=== PATIENT | female | born 1930 | race Caucasian/White ===

== ENCOUNTER 2018-12-18 10:35 | Inpatient (IN) ==
[2018-12-18 11:34] LABS: Basophils # 0.1 10*3/uL (0.0-0.2); Basophils % 0.4 % (0.0-0.8); Eosinophils % 0.2 % (0.00-10.9); Hematocrit 36.2 VOL% (35.7-47.0); Hemoglobin 11.8 GM/DL (12.0-16.0); Immature Granulocytes % 0.6 %; Immature Granulocytes Absolute 0.08 #; Lymphocytes # 0.9 10*3/uL (1.4-4.0); Lymphocytes % 6.4 % (21.3-54.2); Mean Corpuscular HGB Conc 32.6 GM/DL (32-36); Mean Corpuscular Volume 90.5 FL (87-102); Mean Platelet Volume 9.4 FL (9.6-12.0); Monocytes % 4.4 % (1.7-12.7); Platelet Count 274 T/CUMM (130-400); Red Cell Distribution Width 13.1 % (9.3-17.3)
[2018-12-18 11:58] LABS: Bilirubin,Total 0.7 MG/DL (0.2-1.0); Osmolality,Calculated 275.4 MOS/KG (273-304); Total Protein 7.9 G/DL (6.4-8.3)
[2018-12-18] MEDS ORDERED: KETOROLAC 30 MG/1 ML VIAL IV STA (12:15)
[2018-12-18 12:58] LABS: Apearance,Urine CLOUDY (Clear); Bilirubin,Urine Negative (Negative); Blood, Urine Negative (Negative); Glucose,Urine (UA) 50 mg/dL (Negative); Hyaline Casts,Urine 9 /LPF (0-3); Ketones,Urine Negative (Negative); Mucus,Urine Occasional /LPF (Occasional); Nitrite,Urine Negative (Negative); Protein,Urine 100 MG/DL; RBC,Urine 1 /HPF (0-4); Squamous Epithelial Cell,Urine Many /HPF (0-10); Urine Color Yellow (Yellow); Urine Specific Gravity 1.041 (1.001-1.035); Urine Urobilinogen < 2.0 EU/DL (0.2-1.0); WBC,Urine 111 /HPF (0-6)
[2018-12-18] MEDS ORDERED: ONDANSETRON 4 MG/2 ML VIAL IV PRN (14:17)
[2018-12-18] MEDS ORDERED: SODIUM CHLORIDE 0.45% 1,000 ML IV SCH (14:30)
[2018-12-18] MEDS: ENOXAPARIN 40 MG/0.4 ML SYRINGE SUBCUT SCH (15:37)
[2018-12-18] MEDS: cefTRIAXone 1,000 MG in SYRINGE 1 EACH IV SCH (16:21)
[2018-12-18] MEDS ORDERED: GLUCAGON 1 MG VIAL IM PRN (21:05)
[2018-12-18] MEDS ORDERED: DEXTROSE 50% 25 GM/50 ML VIAL IV PRN (21:05)
[2018-12-19] MEDS: LACTULOSE 20 GM/30 ML UDCUP PO SCH ×3 (04:45→15:31)
[2018-12-19 05:26] LABS: Basophils # 0.1 10*3/uL (0.0-0.2); Basophils % 0.7 % (0.0-0.8); Eosinophils # 0.5 10*3/uL (0.0-0.87); Eosinophils % 5.9 % (0.00-10.9); Hematocrit 28.7 VOL% (35.7-47.0); Hemoglobin 9.2 GM/DL (12.0-16.0); Immature Granulocytes % 0.3 %; Immature Granulocytes Absolute 0.03 #; Lymphocytes # 2.1 10*3/uL (1.4-4.0); Lymphocytes % 23.8 % (21.3-54.2); Mean Corpuscular HGB Conc 32.1 GM/DL (32-36); Mean Corpuscular Volume 93.2 FL (87-102); Mean Platelet Volume 9.8 FL (9.6-12.0); Monocytes % 8.2 % (1.7-12.7); Neutrophils % 61.1 % (38.7-73.9); Platelet Count 216 T/CUMM (130-400); Red Blood Count 3.08 MC/CUMM (3.8-5.5); Red Cell Distribution Width 13.2 % (9.3-17.3); White Blood Count 8.9 T/CUMM (4-12)
[2018-12-19 05:39] LABS: Osmolality,Calculated 268.4 MOS/KG (273-304)
[2018-12-19] MEDS: PANTOPRAZOLE 40 MG TABLET PO SCH (08:25)
[2018-12-19] MEDS: INSULIN REGULAR 100 UNIT/ML SUBCUT SCH ×4 (08:25→21:08)
[2018-12-19] MEDS: ACETAMINOPHEN 325 MG TABLET PO PRN ×2 (08:27→15:59)
[2018-12-19] MEDS ORDERED: POLYETHYLENE GLYCOL POWDER 255 GM BOTTLE PO ONE (13:56)
[2018-12-19] MEDS: ENOXAPARIN 40 MG/0.4 ML SYRINGE SUBCUT SCH (15:49)
[2018-12-19] MEDS: METHYLNALTREXONE 12 MG/0.6 ML VIAL SUBCUT SCH (15:49)
[2018-12-19] MEDS: cefTRIAXone 1,000 MG in SYRINGE 1 EACH IV SCH (15:50)
[2018-12-20] MEDS: PANTOPRAZOLE 40 MG TABLET PO SCH (09:56)
[2018-12-20] MEDS: METHYLNALTREXONE 12 MG/0.6 ML VIAL SUBCUT SCH (09:58)
[2018-12-20] MEDS: INSULIN REGULAR 100 UNIT/ML SUBCUT SCH ×2 (10:23→13:09)
[2018-12-20 14:15] VITALS: BP 154/77
[2018-12-20] MEDS: ENOXAPARIN 40 MG/0.4 ML SYRINGE SUBCUT SCH (15:33)
== END 2018-12-20 16:00 | disposition home health service (06) | DRG 392 ==
LOC: N.ED 10:35 → N.EDINP 14:17 → SUATTDRO 14:17 → N.4E 15:09
PROVIDERS: ADMIT Internal Medicine; ATTEND Internal Medicine